=== PATIENT | male | born 1935 | race Caucasian/White ===

== ENCOUNTER 2016-07-21 11:21 | Emergency (ER) | payer MEDICARE, BC ==
[2016-07-21 12:27] VITALS: BP 96/54
[2016-07-21] MEDS ORDERED: Phytonadione ORAL 2.5mg/2.5ml Soln Simple Syrup U/D PO ONE (12:56)
--- NOTE | 2016-07-21 13:04 | EDM.PDOC ---
ED HPI GENERAL MEDICAL PROBLEM - General Chief Complaint: General Stated Complaint: came in for lab work they tell me is off Time Seen by Provider: 07/21/16 11:23 Source of Information: Reports: Patient, Other (lab) History Limitations: Reports: No Limitations - History of Present Illness INITIAL COMMENTS - FREE TEXT/NARRATIVE: Patient had routine INR/PT performed today. PT greater than 120, INR could not be determined. Patient denies having any recent med changes but cannot truly recall med list. Does not know names of medications. Review of labs over the past several years that have been recorded on our system show intermittent elevation of PT/INR but not to this degree. No dietary changes per patient. He denies any active bleeding such as stool changes or hematuria. No coughing up blood. No bloody nose. No hematomas. Pain-free. Complaint-free. 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 - Related Data Allergies Allergy/AdvReac Type Severity Reaction Status Date / Time No Known Allergies Allergy Verified 07/21/16 11:54 Home Meds: Home Meds NIFEdipine [Nifedipine ER] 60 mg PO DAILY 05/20/15 [History] Clobetasol [Clobetasol 0.05%] 1 applic TOP BID 05/27/15 [History] Metoprolol Tartrate 25 mg PO BID 05/27/15 [History] Pravastatin [Pravachol] 20 mg PO DAILY 05/27/15 [History] metFORMIN HCl [Metformin HCl] 500 mg PO DAILY 05/27/15 [History] Omeprazole [Prilosec] 40 mg PO BIDMEALS 06/26/15 [History] Acetaminophen [Acetaminophen Extra Strength] 2 tab PO BID 07/21/16 [History] Allopurinol [Zyloprim] 1 tab PO DAILY 07/21/16 [History] Lisinopril 1 tab PO DAILY 07/21/16 [History] Warfarin [Coumadin] 5 mg PO DAILY 07/21/16 [History] Past Medical History HEENT History: Reports: Impaired Vision Cardiovascular History: Reports: Hypertension Respiratory History: Reports: None Gastrointestinal History: Reports: Cholelithiasis, Chronic Constipation, Diverticulosis, Gastritis, GERD, GI Bleed, Pancreatitis Genitourinary History: Reports: BPH, Urinary Incontinence Musculoskeletal History: Reports: Gout, Osteoarthritis Neurological History: Reports: Neuropathy, Diabetic, Neuropathy, Peripheral Endocrine/Metabolic History: Reports: Diabetes, Type II Hematologic History: Reports: None Immunologic History: Reports: None Oncologic (Cancer) History: Reports: None Dermatologic History: Reports: None - Infectious Disease History Infectious Disease History: Reports: Chicken Pox, Measles - Past Surgical History Head Surgeries/Procedures: Reports: None HEENT Surgical History: Reports: Oral Surgery Cardiovascular Surgical History: Reports: None Respiratory Surgical History: Reports: None Musculoskeletal Surgical History: Reports: Knee Replacement Oncologic Surgical History: Reports: None Dermatological Surgical History: Reports: None - Past Imaging History Past Imaging History: Reports: Ultrasound (Abdominal ultrasound on 09/24/13) Social & Family History - Family History HEENT: Reports: None Cardiac: Reports: Blood Clots/VTE/DVT, Heart Failure, Heart Valve Replacement, Hypertension, ND Respiratory: Reports: PE, Sleep Apnea GI: Reports: None : Reports: Renal Calculus OBGYN: Reports: None Musculoskeletal: Reports: Back pain, Chronic, Gout, Osteoarthritis Neurological: Reports: None Psychiatric: Reports: None Hematologic: Reports: None Immunologic: Reports: None Dermatologic: Reports: None Oncologic: Reports: None - Tobacco Use Smoking Status *Q: Never Smoker Years of Tobacco use: 66 (Since age 14 ) Packs/Tins Daily: 0.1 (1 tin per week) Second Hand Smoke Exposure: No - Caffeine Use Caffeine Use: Reports: Coffee - Alcohol Use Days Per Week of Alcohol Use: 0 Number of Drinks Per Day: 1 (Glass of wine for holidays, very occasional beer) Total Drinks Per Week: 0 - Recreational Drug Use Recreational Drug Use: No - Living Situation & Occupation Living situation: Reports: , Alone Occupation: Retired ED ROS GENERAL - Review of Systems Review Of Systems: See Below Constitutional: Reports: No Symptoms HEENT: Reports: No Symptoms. Denies: Nosebleed Respiratory: Reports: No Symptoms. Denies: Shortness of Breath, Hemoptysis Cardiovascular: Reports: No Symptoms. Denies: Chest Pain GI/Abdominal: Reports: No Symptoms. Denies: Abdominal Pain, Black Stool, Bloody Stool, Hematemesis, Hematochezia : Reports: No Symptoms. Denies: Hematuria Musculoskeletal: Reports: No Symptoms Skin: Reports: No Symptoms Neurological: Reports: No Symptoms. Denies: Headache Psychiatric: Reports: No Symptoms Hematologic/Lymphatic: Denies: Easy Bleeding, Easy Bruising ED EXAM, GENERAL - Physical Exam Exam: See Below Exam Limited By: No Limitations General Appearance: Alert, WD/WN, No Apparent Distress Eye Exam: Bilateral Eye: EOMI, PERRL Ears: Normal External Exam Nose: No: Nasal Drainage Throat/Mouth: Normal Inspection, Normal Voice, No Airway Compromise Head: Atraumatic, Normocephalic Neck: Normal Inspection, Supple, Non-Tender, Full Range of Motion Respiratory/Chest: No Respiratory Distress, Lungs Clear, Normal Breath Sounds Cardiovascular: Normal Peripheral Pulses, Regular Rate, Rhythm, No Edema, No Murmur GI/Abdominal: Soft, Non-Tender (Male) Exam: Deferred Rectal (Males) Exam: Deferred Back Exam: Normal Inspection Extremities: Normal Inspection, Normal Range of Motion, Non-Tender, No Pedal Edema, Normal Capillary Refill Neurological: Alert, Oriented, Normal Cognition, Normal Gait, No Motor/Sensory Deficits Psychiatric: Normal Affect, Normal Mood Skin Exam: Warm, Intact. No: Ecchymosis Course - Vital Signs Last Recorded V/S: Last Vital Signs Temp 36.5 C 07/21/16 12:30 Pulse 51 L 07/21/16 11:21 Resp 18 07/21/16 11:21 BP 96/54 L 07/21/16 11:21 Pulse Ox 95 07/21/16 11:21 - Orders/Labs/Meds Labs: Laboratory Tests 07/21/16 Range/Units 11:45 PT > 120.0 H (9.8-11.7) SEC INR Meds: Medications Discontinued Medications Generic Name Dose Route Start Last Admin Trade Name Freq PRN Reason Stop Dose Admin Phytonadione 5 mg 07/21/16 12:56 07/21/16 13:14 Aquamephyton PO 07/21/16 12:57 5 mg ONETIME ONE Administration - Re-Assessments/Exams Free Text/Narrative Re-Assessment/Exam: 07/21/16 13:52 INR/PT repeated. Similar results as lab performed this morning. Patient refused to stay in the hospital for treatment of excessively elevated PT /INR. Numerous risks of bleeding/ due to this elevated PT/INR discussed with patient. He continued to refuse to stay. With family member present, plan for patient to hold all Coumadin/Warfarin discussed and follow up for the next several days at the clinic for PT/INR rechecks scheduled. Patient is to hold the Coumadin until further notice. Daily PT/INRs are scheduled in clinic tomorrow and Tuesday. He can come to the hospital and have it checked as outpatient over the weekend. Discussed patient with , on-call hospitalist at [facility]. Advised to give 5mg Vit K PO. This was given in ER. Additional Vit K may be needed tomorrow depending on lab values. Extensive precautions outlined for patient prior to his leaving the ER, including activity restriction and symptoms to look for that would indicate immediate need to return to the ER. Patient and grandson said that they understood instructions and plans. AMA papers signed prior to patient returning home. Departure - Departure Time of Disposition: 13:04 Disposition: Against Medical Advice 07 Condition: good Clinical Impression: Elevated INR, Over-anticoagulated - Discharge Information Referrals: Bret Collins [facility] [employer] [facility] [Primary Care Provider] - Forms: ED Department Discharge Additional Instructions: DO NOT TAKE COUMADIN (blood thinner) until you are told to do so by clinic. Your blood is very "thin" right now and cannot clot. You were given Vitamin K in the ER which should help improve this but for now you are at risk for very easy bleeding if you fall. You may even notice blood in your urine or in your stool. We would prefer to keep you in the hospital while your PT and INR are corrected. Since you chose to go home you will need to come to the clinic tomorrow morning and Tuesday morning to have PT/INR rechecked. You may need additional Vitamin K. Additional planning will be done on Tuesday to cover the weekend if additional lab draws are needed. Avoid excessive activity that puts you at risk for falling or bodily injury as we want to minimize the risk for causing bleeding or bruising. If you notice blood in your stool or urine, return to the ER. If you notice sudden problems such as abdominal pain/neurologic changes/shortness of breath, etc, return to the ER.
== END 2016-07-21 13:30 | disposition left against medical advice (07) ==
LOC: LL.ED 11:21
DX: R79.1 Abnormal coagulation profile (principal); H54.7 Unspecified visual loss; K59.00 Constipation, unspecified; E11.40 Type 2 diabetes mellitus with diabetic neuropathy, unspecified; Z79.899 Other long term (current) drug therapy; Z79.84 Long term (current) use of oral hypoglycemic drugs; Z79.01 Long term (current) use of anticoagulants; Z98.890 Other specified postprocedural states; Z96.659 Presence of unspecified artificial knee joint; D64.9 Anemia, unspecified; M10.9 Gout, unspecified; I82.409 Acute embolism and thrombosis of unspecified deep veins of unspecified lower extremity; I10 Essential (primary) hypertension; E78.5 Hyperlipidemia, unspecified; R73.9 Hyperglycemia, unspecified
CPT/HCPCS: 36415; 80053; 83036; 85025; 85610; 99283; 99284; A9270; 99282

== ENCOUNTER 2017-07-28 07:21 | Day surgery (SDC) | payer MEDICARE, BC ==
[2017-07-28] MEDS ORDERED: Lactated Ringers 1,000 ML IV SCH (07:30)
[2017-07-28] MEDS ORDERED: Sodium Chloride 0.9% 10 ML Syringe FLUSH PRN (07:30)
[2017-07-28] MEDS ORDERED: Propofol 200 MG/20 ML SDV ONE ×2 (07:56→08:26)
[2017-07-28] MEDS ORDERED: Midazolam 1 MG/ML 2 ML SDV ONE ×2 (07:56→08:26)
[2017-07-28] MEDS ORDERED: fentaNYL 250 MCG/5 ML SDV ONE ×2 (07:56→08:26)
[2017-07-28] MEDS ORDERED: ceFAZolin 1 GM Vial ONE (08:26)
[2017-07-28] MEDS ORDERED: Ondansetron 4 MG/2 ML SDV ONE (08:26)
[2017-07-28] MEDS ORDERED: Bupivacaine 0.25%/EPINEPHrine 1:200,000 30 ML SDV INFILT ONE (08:55)
[2017-07-28] MEDS ORDERED: fentaNYL 100 MCG/2 ML SDV IVPUSH PRN (11:22)
--- NOTE | 2017-07-28 11:51 | PCM.OPNOTE ---
- General Post-Op/Procedure Note Date of Surgery/Procedure: 07/28/17 Operative Procedure(s): Bilateral Inguinal Hernia Repairs with mesh Findings: Bilateral Indirect inguinal hernias with the right side being a sliding hernia Pre Op Diagnosis: Bilateral Inguinal hernias Post-Op Diagnosis: Same Anesthesia Technique: General LMA Primary Surgeon: Kavon Burns Pathology: Bilateral inguinal hernia sacs Output, Urine Amount: 0 EBL in mLs: 20 Complications: None Condition: Good
[2017-07-28 12:52] VITALS: BP 136/78
--- NOTE | 2017-07-28 17:19 | OR ---
Date of Procedure: 07/28/2017 PREOPERATIVE DIAGNOSIS: Bilateral inguinal hernias. POSTOPERATIVE DIAGNOSIS: Right indirect sliding inguinal hernia and a left indirect inguinal hernia with bilateral cord lipomas. OPERATION PERFORMED: Bilateral repair of inguinal hernias with mesh. INDICATIONS FOR SURGERY: This 82-year-old male is seen because of pain and bulging in the groin area. He was found to have bilateral inguinal hernias and he comes for elective repair. FINDINGS: In the right groin, the patient has a [id number]-[id number] sized indirect inguinal hernia on the right, it is a sliding hernia with thickened preperitoneal fat and possibly bladder composing one of the costa of the hernia sac. There is a rprtquff-zf-gxbsh size indirect hernia sac on the left side as well, although it is not a sliding hernia on the left side. Both spermatic cords were associated with large cord lipomas. DESCRIPTION OF PROCEDURE: The patient was taken to the operating room. He was given general LMA anesthesia and the inguinal area was sterilely prepped and draped. A linear right groin incision was made, carried down to the external oblique fascia which was incised opening the external ring. The ilioinguinal nerve was identified and preserved. The spermatic cord was isolated and then explored. The indirect sac was able to be identified. It was opened and found to be as described above. The thin portion and fatty tissue portion of the sac was resected, but the sliding portion of the sac was preserved. The peritoneal defect was then closed with a running 2-0 Vicryl suture. The cord lipomas from the sac are amputated and the vascular pedicles were ligated with 2 - 0 Vicryl. Repair of the floor of the inguinal canal was then carried out by securing a large size keyhole shaped piece of polypropylene mesh in position in the right groin. The inferior edge of the mesh was secured to the Edgar's ligament medial to the femoral vessels and the shelving portion of the inguinal ligament lateral to these vessels with interrupted 0 Prolene. The superior edge was secured to the internal oblique fascia near its fusion with the external oblique fascia also with interrupted 0 Prolene. The spermatic cord and ilioinguinal nerve were passed through this keyhole defect and the tails of the mesh laterally are reapproximated with 0 Prolene, recreating the internal ring such that it would admit one finger tip alongside the spermatic cord. The tails of the mesh were trimmed and laid into the space lateral to the internal ring between the internal and external oblique fascias. This created a secure reinforcement of the floor of the inguinal canal. The wound was irrigated with Ancef and saline solution. The external oblique fascia was re-approximated with a running 2-0 Vicryl recreating the external ring. The wound was infiltrated with Marcaine. The Sterling's fascia was approximated with interrupted 4-0 Vicryl. The skin was closed with a running 4-0 Vicryl subcuticular stitch, Steri-Strips, and benzoin. Attention was then turned to the left groin. A corresponding left groin incision was made, carried down to the external oblique fascia and it was incised opening the external ring. The spermatic cord was explored. The ilioinguinal nerve was identified and carefully preserved. The indirect hernia sac in the left groin was identified. It was able to be isolated down to the level of the internal ring. It was opened, found to be empty and after rotating it on its own axis, the base of the hernia sac was securely suture ligated with 2-0 Vicryl with a reinforcing 2-0 Vicryl tie being placed. The sac was then amputated above these ties. The cord lipoma on the left spermatic cord was from the cord itself and it was amputated at the level of the internal ring with 2-0 Vicryl used to control the vascular pedicles. The floor of the left inguinal canal was then reinforced with a large size keyhole shaped piece of polypropylene mesh in the same manner as had been performed on the right. Again, the inferior edge of the mesh was secured down to the Edgar's ligament, medial to the femoral vessels and the shelving portion of the inguinal ligament anterior to these vessels with interrupted 0 Prolene. The superior edge of the mesh was secured down to the internal oblique fascia near its fusion with the external oblique fascia also with interrupted 0 Prolene. The spermatic cord and ilioinguinal nerve were passed through the keyhole defect and then the tails of the mesh were secured laterally to each other with 0 Prolene, recreating the internal ring such that it would admit one finger tip alongside the spermatic cord. The tails of the mesh were trimmed and laid into the space lateral to the internal ring between the internal and external oblique fascias. The wound was irrigated and the external oblique fascia on this side was closed with a running 2-0 Vicryl. The wound was infiltrated with Marcaine. The Sterling's fascia was closed with interrupted 4-0 Vicryl and the skin was closed with a running 4-0 Vicryl subcuticular stitch, Steri-Strips, and benzoin. Antibiotic ointment and sterile dressings were placed. The patient was then awakened and taken from the operating room in satisfactory condition. ESTIMATED BLOOD LOSS: 20 mL. COMPLICATIONS: None. PROGNOSIS: Good. CATE Burns MD /[id number] MTDD
--- NOTE | 2017-07-29 08:58 | OR ---
Date of Procedure: 07/28/2017 This 82-year-old male presents today for surgical repair of bilateral inguinal hernias. These were recently discovered on examination and the patient has been having pain related to them. The patient was medically stable to proceed today. The sites of the hernias are confirmed with the patient and marked. I again reviewed the proposed operative procedure with the patient. He agrees to proceed accepting risks. There has been no recent significant change to his health status. CATE Burns MD /[id number]
--- NOTE | 2017-08-04 10:50 | PCM.SN ---
- Free Text/Narrative Note: Anesthesia documentation is missing and not available for this patient. Patient was seen and evaluated preoperatively for a bilateral inguinal hernia repair. Chart was reviewed, I discussed the risks, benefits, of the anesthesia with the patient and he agrees and wishes to proceed with general anesthesia. [employer] consent was obtained. Pt was brought to the operating room and all monitors were on and functioning. Induction of anesthesia with propofal and fentanyl, #5 LMA was placed with no difficulty. See charge documentation for all drugs used. See OR record for stop and start times for the case. Bethpage hugger was applied and running throughout case, all monitoring equipment was applied. Pt was spontaneously breathing throughout case with Sevo/air/oxygen. Case completed with no difficulty, LMA was removed and the patient was transferrd to the PACU with oxygen via nasal cannula. Report was given to KOFFI Holt and patient was resting, PIV patent and patient stable. Jania Gold [employer]
--- NOTE | 2017-08-04 11:41 | PCM.SN ---
- Free Text/Narrative Note: Medications administered for bilateral hernia repair Ancef 1 GM Fentanyl 5 ml (250mcg) Versed 2mg Zofran 4 mg Propofal 200mg Sevoflurane through the case Jania Gold [employer]
== END 2017-07-28 13:30 | disposition home or self-care (01) ==
LOC: LL.SDS 07:21
PROVIDERS: ATTEND Surgery
DX: K40.20 Bilateral inguinal hernia, without obstruction or gangrene, not specified as recurrent (principal); I10 Essential (primary) hypertension; Z79.01 Long term (current) use of anticoagulants; Z79.84 Long term (current) use of oral hypoglycemic drugs; Z79.899 Other long term (current) drug therapy
CPT/HCPCS: 00830; 82962; 88302; C1781; J0690; J2250; J2405; J2704; J3010; J7120

== ENCOUNTER → 2019-01-11 | Outpatient (CLI) | payer MEDICARE, BC | LOC: LL.LAB 09-12 10:15 → LL.CLIN 08:52 | PROVIDERS: ATTEND Nurse Practitioner | DX: Z51.81 Encounter for therapeutic drug level monitoring (principal); Z79.01 Long term (current) use of anticoagulants | CPT/HCPCS: 36416; 85610; 99212 ==

== ENCOUNTER 2021-11-14 18:52 | Emergency (ER) | payer MEDICARE, BC ==
[2021-11-14 19:34] LABS: CHLORIDE,CL 104 mmol/L (98-107); ESTIMATED GFR 42 mL/min (>=60); SODIUM,NA 138 mmol/L (136-145)
[2021-11-14] MEDS ORDERED: Lidocaine 2% with EPINEPHrine 1:100,000 20 ML MDV INJECT ONE (20:54)
[2021-11-14] MEDS ORDERED: Lidocaine 1% 5 ML VIAL INJECT ONE (21:37)
[2021-11-14] MEDS ORDERED: Bacitracin Oint 1 GM U/D Packet TOP ONE (22:31)
[2021-11-14 23:43] VITALS: BP 164/88; PULSE 85
== END 2021-11-14 23:44 | disposition home or self-care (01) ==
LOC: LL.ED 18:52
DX: S02.2XXA Fracture of nasal bones, initial encounter for closed fracture (principal); S01.81XA Laceration without foreign body of other part of head, initial encounter; S01.21XA Laceration without foreign body of nose, initial encounter; I10 Essential (primary) hypertension; E11.9 Type 2 diabetes mellitus without complications; Z79.899 Other long term (current) drug therapy; Z79.82 Long term (current) use of aspirin; Z90.49 Acquired absence of other specified parts of digestive tract; W01.10XA Fall on same level from slipping, tripping and stumbling with subsequent striking against unspecified object, initial encounter
CPT/HCPCS: 12013; 70450; 70486; 72125; 80053; 80307; 83735; 85025; 99284

== ENCOUNTER 2021-11-18 11:05 | Emergency (ER) | payer MEDICARE, BC ==
[2021-11-18 11:45] VITALS: BP 156/86; PULSE 67
== END 2021-11-18 12:13 | disposition home or self-care (01) ==
LOC: LL.ED 11:05
DX: S01.111A Laceration without foreign body of right eyelid and periocular area, initial encounter (principal); S51.011A Laceration without foreign body of right elbow, initial encounter; S80.212A Abrasion, left knee, initial encounter; I10 Essential (primary) hypertension; E11.9 Type 2 diabetes mellitus without complications; K21.9 Gastro-esophageal reflux disease without esophagitis; M10.9 Gout, unspecified; N40.0 Benign prostatic hyperplasia without lower urinary tract symptoms; Z79.899 Other long term (current) drug therapy; Z79.82 Long term (current) use of aspirin; W18.30XA Fall on same level, unspecified, initial encounter
CPT/HCPCS: 99283; 99284

== ENCOUNTER 2021-12-03 13:40 | Emergency (ER) | payer MEDICARE, BC ==
[2021-12-23 10:54] LABS: ANION GAP 14.9 meq/L (7-15); CHLORIDE,CL 104 mmol/L (98-107); ESTIMATED GFR 42 mL/min (>=60); SODIUM,NA 138 mmol/L (136-145)
[2021-12-23 10:58] LABS: PTT,PARTIAL THROMBOPLSTIN TIME 27.5 SEC (23.6-29.8)
== END 2021-12-03 18:00 ==
LOC: LL.ED 13:40
DX: R53.1 Weakness (principal); R29.6 Repeated falls
CPT/HCPCS: 36415; 80053; 80307; 81001; 82272; 83605; 83880; 85025; 85610; 85652; 85730; 99284

== ENCOUNTER 2022-12-22 13:52 | Emergency (ER) | payer MEDICARE, BC ==
[2022-12-22 14:43] VITALS: BP 117/73; PULSE 78
[2022-12-22 14:43] LABS: BASOPHILS ABSOLUTE AUTO 0.03 K/uL (0.00-0.20); BASOPHILS PERCENT AUTO 0.5 % (0.0-2.0); EOSINOPHILS ABSOLUTE AUTO 0.09 K/uL (0.00-0.50); EOSINOPHILS PERCENT AUTO 1.6 % (0.0-5.0); HEMATOCRIT 46.2 % (39.0-49.0); HEMOGLOBIN 15.5 g/dL (13.1-16.8); LYMPHOCYTES ABSOLUTE AUTO 0.57 K/uL (0.50-3.50); LYMPHOCYTES PERCENT AUTO 9.9 % (10.0-50.0); MEAN CORPUSCULAR HEMOGLOBIN 32.6 pg (28.2-33.3); MEAN CORPUSCULAR HGB CONC 33.5 g/dL (31.7-36.0); MEAN CORPUSCULAR VOLUME 97.3 fL (84.0-98.0); MONOCYTES ABSOLUTE AUTO 0.64 K/uL (0.00-1.00); MONOCYTES PERCENT AUTO 11.1 % (2.0-14.0); NEUTROPHILS ABSOLUTE AUTO 4.44 K/uL (1.40-7.00); NEUTROPHILS PERCENT AUTO 76.9 % (45.0-80.0); PLATELET COUNT,PLT 141 K/uL (150-350); RED BLOOD CELL COUNT 4.75 M/uL (4.33-5.41); RED CELL DISTRIBUTION WIDTH 13.7 % (11.2-14.1); WHITE BLOOD CELL COUNT,WBC 5.8 K/uL (4.0-10.2)
[2022-12-22 15:03] LABS: ALBUMIN 3.3 g/dL (3.4-5.0); ANION GAP 11.3 meq/L (7-15); BILIRUBIN TOTAL 0.8 mg/dL (0.2-1.0); CALCIUM 8.8 mg/dL (8.5-10.1); CARBON DIOXIDE,CO2 22.7 mmol/L (21.0-32.0); CREATININE 1.59 mg/dL (0.51-1.17); EST CRCL DRUG DOSING (CG) 32.11 mL/min; MAGNESIUM 1.6 mg/dL (1.8-2.4); POTASSIUM,K 3.8 mmol/L (3.5-5.1); PROTEIN TOTAL,TP 5.8 g/dL (6.4-8.2)
[2022-12-22] MEDS: FLU (Fluad Quad) 2023-24(65UP)/MF59C/PF 60 MCG/0.5 ML Syringe IM ONE (15:42)
[2022-12-22 16:07] LABS: APPEARANCE,URINE CLEAR; BILIRUBIN,URINE NEGATIVE (NEGATIVE); COLOR,URINE YELLOW; GLUCOSE,URINE NEGATIVE (NEGATIVE); KETONES,URINE NEGATIVE (NEGATIVE); LEUKOCYTE ESTERASE,URINE NEGATIVE (NEGATIVE); NITRITE,URINE NEGATIVE (NEGATIVE); OCCULT BLOOD,URINE NEGATIVE (NEGATIVE); PH,URINE 5.5 (5.0-9.0); PROTEIN,URINE 30 mg/dL (NEGATIVE); UROBILINOGEN,URINE 0.2 E.U./dL (0.2-1.0)
[2022-12-22 16:16] LABS: EPITHELIAL CELLS,URINE NOT SEEN /LPF; RBC,URINE 0-5 /HPF; WBC,URINE 0-5 /HPF
== END 2022-12-22 17:15 | disposition home or self-care (01) ==
LOC: LL.ED 13:52
DX: E83.42 Hypomagnesemia (principal); R29.6 Repeated falls; I10 Essential (primary) hypertension; K21.9 Gastro-esophageal reflux disease without esophagitis; E11.9 Type 2 diabetes mellitus without complications; Z91.81 History of falling; Z79.82 Long term (current) use of aspirin; Z79.899 Other long term (current) drug therapy
CPT/HCPCS: 36415; 70450; 71046; 73130-LT; 80053; 81001; 83735; 85025; 90471; 90694; 99285-25